=== PATIENT | female | born 1970 | race African-American/Black ===

== ENCOUNTER 2017-01-23 08:57 | Emergency (ER) | payer SELFPAY ==
[~2017-01-23] VITALS: Ht 154.9 cm; Wt 49.9 kg
--- NOTE | 2017-01-23 09:30 | NUR ---
PT WAS EVALUATED BY DR LEWIS. PT WAS D/C TO HOME. D/C INSTRUCTIONS GIVEN TO THE PT.
[2017-01-23 09:31] VITALS: BP 132/77
== END 2017-01-23 09:31 | disposition home or self-care (01) ==
LOC: ER 08:57
DX: Z76.0 Encounter for issue of repeat prescription (principal); M47.9 Spondylosis, unspecified; M19.90 Unspecified osteoarthritis, unspecified site
CPT/HCPCS: 99283; A4663

== ENCOUNTER 2017-09-22 22:19 | Emergency (ER) | payer SELFPAY ==
[~2017-09-22] VITALS: Ht 154.9 cm; Wt 59.0 kg
[2017-09-22] MEDS ORDERED: predniSONE 20 MG TABLET PO ONE (23:15)
--- NOTE | 2017-09-22 23:21 | NUR ---
Patient discharged to home in stable conditon. Written and verbal after care instructions given. Patient verbalizes understanding of instructions.
[2017-09-22] MEDS ORDERED: predniSONE 50 MG TABLET ONE (23:28)
[2017-09-22] MEDS ORDERED: predniSONE 10 MG TABLET ONE (23:28)
== END 2017-09-22 23:22 | disposition home or self-care (01) ==
LOC: ER 22:20
DX: M06.9 Rheumatoid arthritis, unspecified (principal); M25.50 Pain in unspecified joint
CPT/HCPCS: 99283; A4663; J7512 ×2

== ENCOUNTER 2018-03-25 22:09 | Emergency (ER) | payer BC ==
[~2018-03-25] VITALS: Ht 154.9 cm; Wt 68.0 kg
[2018-03-25] MEDS ORDERED: ALPRAZOLAM 2 MG TABLET (22:23)
[2018-03-25] MEDS ORDERED: PREDNISONE 10 MG TABLET (22:23)
--- NOTE | 2018-03-25 22:31 | NUR ---
Dr. Rashid at bedside for MSE.
--- NOTE | 2018-03-25 22:40 | NUR ---
Patient discharged to home in stable conditon. Written and verbal after care instructions given. Patient verbalizes understanding of instructions. Patient ambulated out of ER with steady gait, no acute signs of distress, VSS, all belongings taken.
[2018-03-25 22:41] VITALS: BP 152/106
== END 2018-03-25 22:41 | disposition home or self-care (01) ==
LOC: ER 22:10
DX: Z76.0 Encounter for issue of repeat prescription (principal); M06.9 Rheumatoid arthritis, unspecified; Z79.899 Other long term (current) drug therapy
CPT/HCPCS: 99283; A4663

== ENCOUNTER 2018-03-30 21:39 | Emergency (ER) | payer BC ==
[~2018-03-30] VITALS: Ht 154.9 cm; Wt 68.0 kg
[~2018-03-30 21:39] MED LIST: ALPRAZOLAM 2 MG TABLET; PREDNISONE 10 MG TABLET
--- NOTE | 2018-03-30 22:09 | NUR ---
GIBSON GEORGE AT BEDSIDE FOR MSE.
[2018-03-30] MEDS: HYDROCODONE/APAP 5-325MG TABLET PO ONE (22:21)
[2018-03-30] MEDS ORDERED: HYDROCODONE/APAP 5-325MG TABLET ONE (22:22)
--- NOTE | 2018-03-30 22:29 | NUR ---
Patient discharged to home in stable conditon. Written and verbal after care instructions given. Patient verbalizes understanding of instructions. All belongings with pt. VSS. No acute distress noted. Pt ambulated out of ER in steady gait.
[2018-03-30 22:31] VITALS: BP 152/99
== END 2018-03-30 22:31 | disposition home or self-care (01) ==
LOC: ER 21:40
DX: M54.5 Low back pain (principal); Z79.899 Other long term (current) drug therapy
CPT/HCPCS: 99282; A4663

== ENCOUNTER 2018-09-16 21:39 | Emergency (ER) | payer BC ==
[~2018-09-16] VITALS: Ht 154.9 cm; Wt 65.8 kg
--- NOTE | 2018-09-16 22:30 | NUR ---
Dr. Aguero at bedside for MSE.
[2018-09-16 22:48] VITALS: BP 124/78
== END 2018-09-16 22:48 | disposition home or self-care (01) ==
LOC: ER 21:41
DX: M06.9 Rheumatoid arthritis, unspecified (principal); G89.29 Other chronic pain; M25.571 Pain in right ankle and joints of right foot
CPT/HCPCS: A4663

== ENCOUNTER 2018-09-20 12:01 | Emergency (ER) | payer BC ==
[~2018-09-20] VITALS: Ht 154.9 cm; Wt 65.8 kg
--- NOTE | 2018-09-20 12:14 | NUR ---
Pt d/c by with verbal ACI.
== END 2018-09-20 12:17 | disposition home or self-care (01) ==
LOC: ER 12:02
DX: F41.9 Anxiety disorder, unspecified (principal); Z76.0 Encounter for issue of repeat prescription
CPT/HCPCS: A4663

== ENCOUNTER 2019-07-10 12:35 | Emergency (ER) | payer BC, OTHER ==
[~2019-07-10] VITALS: Ht 154.9 cm; Wt 62.6 kg
--- NOTE | 2019-07-10 13:41 | NUR ---
Patient discharged to home in stable conditon. Written and verbal after care instructions given. Patient verbalizes understanding of instructions.PT WALKS I NSTEADY GAIT.
== END 2019-07-10 13:43 | disposition home or self-care (01) ==
LOC: ER 12:35
DX: S93.401A Sprain of unspecified ligament of right ankle, initial encounter (principal); M19.071 Primary osteoarthritis, right ankle and foot; Z76.0 Encounter for issue of repeat prescription; F41.9 Anxiety disorder, unspecified; Z79.899 Other long term (current) drug therapy; X50.1XXA Overexertion from prolonged static or awkward postures, initial encounter; Y93.89 Activity, other specified; Y92.89 Other specified places as the place of occurrence of the external cause; Y99.8 Other external cause status
CPT/HCPCS: 73610; A4663

== ENCOUNTER 2020-07-08 22:53 | Emergency (ER) | payer OTHER ==
[~2020-07-08] VITALS: Ht 154.9 cm; Wt 57.6 kg
--- NOTE | 2020-07-08 23:23 | NUR ---
MD performing patient exam at this time
[2020-07-08] MEDS ORDERED: [UNRECOGNIZED DRUG - REMARK] (23:28)
[2020-07-08] MEDS ORDERED: KETOROLAC TROMETHAMINE 15 MG INJ IM ONE (23:30)
[2020-07-08] MEDS ORDERED: KETOROLAC TROMETHAMINE 15 MG INJ ONE (23:40)
--- NOTE | 2020-07-08 23:41 | NUR ---
Patient discharged to home in stable condition. NOted ambulating in a steady manner, states famaily member will pick her up from ER. Written and verbal after care instructions given. Patient verbalizes understanding of instructions. Stressed follow up or return to ER for worsening s/s.
[2020-07-08 23:46] VITALS: BP 120/78
== END 2020-07-08 23:44 | disposition home or self-care (01) ==
LOC: ER 22:55
DX: S16.1XXA Strain of muscle, fascia and tendon at neck level, initial encounter (principal); V43.52XA Car driver injured in collision with other type car in traffic accident, initial encounter; Y92.414 Local residential or business street as the place of occurrence of the external cause; G44.309 Post-traumatic headache, unspecified, not intractable; M25.532 Pain in left wrist; M25.531 Pain in right wrist; M79.10 Myalgia, unspecified site; M06.9 Rheumatoid arthritis, unspecified
CPT/HCPCS: 96372; 99283; J1885; A4663

== ENCOUNTER 2022-05-24 14:54 | Emergency (ER) | payer OTHER ==
[~2022-05-24] VITALS: Ht 154.9 cm; Wt 62.6 kg
[~2022-05-24 14:54] MED LIST changes: +[UNRECOGNIZED DRUG - REMARK]
[2022-05-24] MEDS ORDERED: SERT25TA PO (15:22)
[2022-05-24] MEDS ORDERED: TRAZ-182 PO (15:22)
--- NOTE | 2022-05-24 22:52 | NUR ---
Pt not in waiting room.
== END 2022-05-24 22:55 | disposition left against medical advice (07) ==
LOC: ER 14:54
DX: Z53.21 Procedure and treatment not carried out due to patient leaving prior to being seen by health care provider (principal)

== ENCOUNTER 2023-03-19 20:25 | Emergency (ER) | payer MEDICARE, OTHER ==
[~2023-03-19 20:25] MED LIST changes: +SERT25TA PO; +TRAZ-182 PO
--- NOTE | 2023-03-19 21:58 | NUR ---
Patient's name called in waiting room and outside of ER, no response.
--- NOTE | 2023-03-19 23:05 | NUR ---
Patient has not returned to waiting room.
== END 2023-03-19 23:08 | disposition left against medical advice (07) ==
LOC: ER 20:25
DX: Z53.21 Procedure and treatment not carried out due to patient leaving prior to being seen by health care provider (principal)